=== PATIENT | female | born 1965 | race African-American/Black ===

== ENCOUNTER 2019-01-29 10:06 | Emergency (ER) | payer BC ==
[~2019-01-29] VITALS: Ht 162.6 cm; Wt 65.8 kg
--- NOTE | 2019-01-29 10:27 | NUR ---
PT WALKED IN TO EMERGENCY ROOM WITH FRIEND HUNCHED OVER FOR C/C OF BACK PAIN. TWO WEEKS AGO PT HAD BACK SURGERY AND WENT TO [facility] THURSDAY TO HAVE WOUND CLEANED AND GIVEN ANTIBIOTICS PT ALERT WITH ORIENTATION X 4 ABLE TO UNDRESS IN GOWN WILL CONTINUE TO MONITOR.
[2019-01-29] MEDS ORDERED: SULF1TAB48 PO (10:33)
--- NOTE | 2019-01-29 11:19 | NUR ---
pt walked out of emergency room did not want any adalid camejo aware pt refused to sign AMA form as well.
[2019-01-29 11:21] VITALS: BP 112/72
--- NOTE | 2019-01-29 11:22 | NUR ---
pt refused piv as well
== END 2019-01-29 11:22 | disposition left against medical advice (07) ==
LOC: ER 10:07
DX: M79.651 Pain in right thigh (principal); F41.9 Anxiety disorder, unspecified; Z88.1 Allergy status to other antibiotic agents; Z85.3 Personal history of malignant neoplasm of breast; Z98.890 Other specified postprocedural states

== ENCOUNTER 2021-03-03 07:36 | Emergency (ER) | payer BC, OTHER ==
[~2021-03-03] VITALS: Ht 160 cm; Wt 70.3 kg
[~2021-03-03 07:36] MED LIST: SULF1TAB48 PO
--- NOTE | 2021-03-03 07:52 | NUR ---
TO ER BED 6, FROM HOME C/O COUGH X2DAYS, AAOX3, BREATHING EVEN AND NON LABORED, CONNECTED TO MONITOR
--- NOTE | 2021-03-03 08:25 | NUR ---
SALINE LOCK ESTABLISHED, BLOOD DRAWN AND SENT TO LAB
--- NOTE | 2021-03-03 08:28 | NUR ---
[employer] O[employer] AT BEDSIDE
[2021-03-03] MEDS ORDERED: LIDOCAINE VISCOUS 2% UD 15 ML UDC MM ONE (08:30)
[2021-03-03] MEDS ORDERED: MAG HYDROX/AL HYDROX/SIMETH 30 ML UDC PO ONE (08:30)
[2021-03-03] MEDS ORDERED: IV NS 0.9% 500 ML BAG IV ONE (08:30)
[2021-03-03] MEDS ORDERED: PANTOPRAZOLE 40 MG VIAL IV ONE (08:30)
[2021-03-03] MEDS ORDERED: PANTOPRAZOLE 40 MG VIAL ONE (08:31)
[2021-03-03] MEDS ORDERED: LIDOCAINE VISCOUS 2% UD 15 ML UDC ONE (08:31)
[2021-03-03] MEDS ORDERED: MAG HYDROX/AL HYDROX/SIMETH 30 ML UDC ONE (08:31)
[2021-03-03 08:39] LABS: BASOPHILS # (AUTO) 0.1 K/uL (0.0-0.2); BASOPHILS % (AUTO) 1.3 % (0.0-2.0); EOSINOPHILS % (AUTO) 8.5 % (0.0-6.0); HEMATOCRIT 39 % (33-45); HEMOGLOBIN 13.1 g/dL (11.5-14.8); LYMPHOCYTES # (AUTO) 1.1 K/uL (0.8-4.8); LYMPHOCYTES % (AUTO) 17.3 % (20.0-44.0); MEAN CORPUSCULAR HGB CONC 33 g/dl (31.0-36.0); MEAN CORPUSCULAR VOLUME 101 fL (82-100); MONOCYTES # (AUTO) 0.4 K/uL (0.1-1.30); MONOCYTES % (AUTO) 5.9 % (2.0-12.0); NEUTROPHILS # (AUTO) 4.1 K/uL (1.8-8.9); PLATELET COUNT (AUTO) 247 K/uL (150-450); WHITE BLOOD COUNT (AUTO) 6.2 K/uL (4.3-11.0)
--- NOTE | 2021-03-03 08:49 | NUR ---
URINE COLLECTED AND SENT TO LAB
[2021-03-03 08:50] LABS: CALCIUM, SERUM 8.7 mg/dL (8.5-10.1); CARBON DIOXIDE 29 mmol/L (21-32); CHLORIDE 106 mmol/L (98-107); CREATININE 0.8 mg/dL (0.6-1.3); GLUCOSE 104 mg/dL (74-106); POTASSIUM 3.6 mmol/L (3.5-5.1); SODIUM SERUM 140 mmol/L (136-145); UREA NITROGEN, BLOOD 11 mg/dL (7-18)
[2021-03-03 08:54] LABS: ALANINE AMINOTRANSFERASE 27 U/L (12-78); ALBUMIN 3.7 g/dL (3.4-5.0); ALKALINE PHOSPHATASE 107 U/L (46-116); ASPARTATE AMINOTRANSFERASE 24 U/L (15-37); BILIRUBIN,DIRECT 0.1 mg/dL (0.0-0.2); BILIRUBIN,TOTAL 0.3 mg/dL (0.2-1.0); LIPASE 85 U/L (73-393); TOTAL PROTEIN, SERUM 7.5 g/dL (6.4-8.2)
[2021-03-03 09:52] LABS: BILIRUBIN,URINE NEGATIVE (NEGATIVE); COLOR,URINE YELLOW (YELLOW); LEUKOCYTE ESTERASE ,URINE NEGATIVE (NEGATIVE); NITRITE, URINE NEGATIVE (NEGATIVE); PROTEIN,URINE NEGATIVE (NEGATIVE); UGLUCOSE NEGATIVE (NEGATIVE); UROBILINOGEN,URINE 0.2 EU/dL (0.2)
[2021-03-03] MEDS ORDERED: PANT40TA49 PO (10:49)
--- NOTE | 2021-03-03 11:04 | NUR ---
IV removed. Catheter intact and site benign. Pressure and 4x4 applied to site. No bleeding noted.Patient discharged to home in stable condition. Written and verbal after care instructions given. Patient verbalizes understanding of instruction.
[2021-03-03 11:09] VITALS: BP 121/70
== END 2021-03-03 11:10 | disposition home or self-care (01) ==
LOC: ER 07:40
DX: K21.9 Gastro-esophageal reflux disease without esophagitis (principal); Z98.890 Other specified postprocedural states; Z88.1 Allergy status to other antibiotic agents; Z79.899 Other long term (current) drug therapy
CPT/HCPCS: 36415; 71045; 80048; 80076; 81003; 83690; 83735; 84484; 85025; 93005; 96374; 99285; C9113; J7040 ×2

== ENCOUNTER 2022-10-05 11:58 | Emergency (ER) | payer OTHER ==
[~2022-10-05] VITALS: Ht 162.6 cm; Wt 68.0 kg
[~2022-10-05 11:58] MED LIST changes: +PANT40TA49 PO
--- NOTE | 2022-10-05 12:30 | NUR ---
BIB DAUGHTER C/O COUGH, CONGESTION, SORETHROAT X 1 WEEK.
--- NOTE | 2022-10-05 12:40 | NUR ---
AT BEDSIDE FOR EVAL
[2022-10-05] MEDS ORDERED: AZIT250T13 PO (12:58)
[2022-10-05] MEDS ORDERED: AZITHROMYCIN 250 MG TABLET ONE (13:00)
[2022-10-05] MEDS ORDERED: PSEUDOEPHEDRINE HCL 30 MG TABLET PO ONE (13:00)
[2022-10-05] MEDS ORDERED: AZITHROMYCIN 250 MG TABLET PO ONE (13:00)
[2022-10-05] MEDS ORDERED: PSEUDOEPHEDRINE HCL 30 MG TABLET ONE (13:01)
--- NOTE | 2022-10-05 13:05 | NUR ---
Patient discharged to home in stable condition. Written and verbal after care instructions given. Patient verbalizes understanding of instruction.
[2022-10-05 13:07] VITALS: BP 102/67
== END 2022-10-05 13:05 | disposition home or self-care (01) ==
LOC: ER 12:03
DX: J32.9 Chronic sinusitis, unspecified (principal); Z79.899 Other long term (current) drug therapy; Z88.1 Allergy status to other antibiotic agents